=== PATIENT | male | born 1980 | race Caucasian/White ===

== ENCOUNTER 2018-05-13 16:18 | Emergency (ER) | payer OTHER ==
[2018-05-13] MEDS ORDERED: Nicotine Inhaler* 10 MG AMP INH PRN (16:56)
[2018-05-13] MEDS ORDERED: Benztropine TAB* 2 MG PO ONE (16:57)
[2018-05-13 17:48] LABS: ABS Basophils 0 10^3/ul (0-0.2); ABS Eosinophils 0.1 10^3/ul (0-0.6); ABS Lymphocytes 1.4 10^3/ul (1.0-4.8); ABS Monocytes 0.5 10^3/ul (0-0.8); ABS Neutrophils 3.4 10^3/ul (1.5-7.7); ABS Nucleated RBC 0 10^3/ul; Eosinophil % 2.7 %; Hematocrit 34 % (42-52); Hemoglobin 11.6 g/dl (14.0-18.0); Lymphocyte % 25.9 %; Mean Corpuscular HGB Conc 34 g/dl (31-36); Mean Corpuscular Hemoglobin 29 pg (27-31); Mean Corpuscular Volume 85 fL (80-94); Mean Platelet Volume 9.2 fL (7.4-10.4); Nucleated Red Blood Cells % 0; Platelet Count 112 10^3/ul (150-450); Red Blood Count 3.98 10^6/ul (4.00-5.40); Red Cell Distribution Width 16 % (10.5-15); White Blood Count 5.5 10^3/ul (3.5-10.8)
[2018-05-13] MEDS ORDERED: Mouth Piece, Nicotine* 1 EACH CARTRIDGE INH ONE (18:00)
--- NOTE | 2018-05-13 18:00 | ED ---
Complex/Multi-Sys Presentation - HPI Summary HPI Summary: A 37 y/o male presents to the ED to be evaluated for tardive dyskinesia and hearing voices, referred by Lisa Ureña NP. Patient was sent here from [facility]. Pt has hx schizoaffective disorder. Patient was recently taken off Haldol and placed on Seroquel 50 qhs approximately 2 days ago. It was noted that the patient was on Haldol for about 5 months while he was in [facility]. Pt has hx heroin abuse, with no abuse since he was in [facility]. According to the patient, he cannot stop moving his legs. He denies any SI, HI, headache, dizziness, chest pain, and SOB. The patient noted that he does hear voices when he is off his medication, and does here them now but they do not tell him to do anything. He stated that "they were fine". During evaluation, the patient has his arms crossed and his legs are bouncing back and forth. Patient is anxious. Patient requested nicotine patch. - History Of Current Complaint Chief Complaint: EDGeneral Time Seen by Provider: 05/13/18 16:55 Hx Obtained From: Patient, Other: - Lisa Ureña NP at [facility] Onset/Duration: Gradual Onset, Lasting Days, Still Present Timing: Constant Severity Currently: Moderate Severity Initially: Moderate Location: Negative - pain, +akathisia Aggravating Factor(s): NOTHING Alleviating Factor(s): NOTHING Associated Signs And Symptoms: Positive: Other - NEGATIVE: SI AND HI. Negative : Dizziness, Headache, SOB, Chest Pain Related History: Other - pt at [facility]; hx heroin abuse, none now - Allergies/Home Medications Allergies/Adverse Reactions: Allergies Allergy/AdvReac Type Severity Reaction Status Date / Time vancomycin Allergy Stomach Verified 05/13/18 16:43 Cramps PMH/Surg Hx/FS Hx/Imm Hx Previously Healthy: No - former heroin abuser, currently resident of [facility] 2017 Endocrine/Hematology History: Denies: Hx Diabetes Cardiovascular History: Denies: Hx Hypertension GI History: Reports: Other GI Disorders - hx hep C and elevated LFTS - Surgical History Surgery Procedure, Year, and Place: PER PATIENT, NO PRIOR SURGERIES NOTED Infectious Disease History: Yes Infectious Disease History: Reports: Hx Hepatitis - C Denies: Traveled Outside the [place] in Last 30 Days - Family History Known Family History: Positive: Other - MENTAL HEALTH ISSUES FHX - Social History Occupation: Unemployed Lives: Custodial - [facility] Alcohol Use: None Hx Substance Use: Yes - former Substance Use Type: Reports: Heroin Smoking Status (MU): Former Smoker Have You Smoked in the Last Year: Yes - smoked two cigarettes today on the way to ED 05/13/18 Review of Systems Negative: Fever Negative: Chest Pain Negative: Shortness Of Breath Gastrointestinal: Negative Musculoskeletal: Negative Skin: Negative Neurological: Other - NEGATIVE: DIZZINESS, arms and legs in constant motion Negative: Headache Psychological: Other - NEGATIVE: HI AND SI, hearing voices All Other Systems Reviewed And Are Negative: Yes Physical Exam - Summary Physical Exam Summary: Appearance: Well-appearing, no pain distress, well-nourished, calm, cooperative Skin: Warm, color reflects adequate perfusion, dry Head: Normal Head/Face inspection, atraumatic Eyes: Conjunctiva clear ENT: Normal inspection, no lip smacking or chewing motions Neck: Supple, no nodes, no JVD Respiratory: Lungs clear, normal breath sounds, no respiratory distress Cardio: RRR, No murmur, pulses normal, brisk capillary refill Abdomen: Soft, nontender Bowel sounds: Present Musculoskeletal: Strength Intact/ROM intact, no calf tenderness, no edema. Psychological: Normal Neuro: Alert, muscle tone normal, no focal deficit, active movements of all extremities. Triage Information Reviewed: Yes Vital Signs On Initial Exam: Initial Vitals Temp Pulse Resp BP Pulse Ox 97.7 F 92 20 132/79 98 05/13/18 16:37 05/13/18 16:37 05/13/18 16:37 05/13/18 16:37 05/13/18 16:37 Vital Signs Reviewed: Yes Diagnostics - Vital Signs Vital Signs Temp Pulse Resp BP Pulse Ox 05/13/18 16:37 97.7 F 92 20 132/79 98 - Laboratory Lab Results: Lab Results 05/13/18 Range/Units 17:30 WBC 5.5 (3.5-10.8) 10^3/ul RBC 3.98 L (4.00-5.40) 10^6/ul Hgb 11.6 L (14.0-18.0) g/dl Hct 34 L (42-52) % MCV 85 (80-94) fL MCH 29 (27-31) pg MCHC 34 (31-36) g/dl RDW 16 H (10.5-15) % Plt Count 112 L (150-450) 10^3/ul MPV 9.2 (7.4-10.4) fL Neut % (Auto) 61.3 % Lymph % (Auto) 25.9 % [place] % (Auto) 9.3 % Eos % (Auto) 2.7 % Baso % (Auto) 0.8 % Absolute Neuts (auto) 3.4 (1.5-7.7) 10^3/ul Absolute Lymphs (auto) 1.4 (1.0-4.8) 10^3/ul Absolute Monos (auto) 0.5 (0-0.8) 10^3/ul Absolute Eos (auto) 0.1 (0-0.6) 10^3/ul Absolute Basos (auto) 0 (0-0.2) 10^3/ul Absolute Nucleated RBC 0 10^3/ul Nucleated RBC % 0 Result Diagrams: 05/13/18 17:30 05/13/18 17:30 Lab Statement: Any lab studies that have been ordered have been reviewed, and results considered in the medical decision making process. Re-Evaluation - Re-Evaluation First Eval Re-Evaluation Time: 20:54 Change: Improved Comment: PATIENT AGREES TO MHE. PATIENT FEELING IMPROVED AFTER COGENTIN. STILL HAS AKATHISIA. Complex Multi-Symp Course/Dx Course Of Treatment: A 37 y/o male presents to the ED to be evaluated for tardive dyskinesia and hearing voices, referred by Lisa Ureña NP. Patient was sent here from [facility]. Pt has hx schizoaffective disorder. Patient was recently taken off Haldol and placed on Seroquel 50 qhs approximately 2 days ago. It was noted that the patient was on Haldol for about 5 months while he was in [facility]. Pt has hx heroin abuse, with no abuse since he was in [facility]. According to the patient, he cannot stop moving his legs. He denies any SI, HI, headache, dizziness, chest pain, and SOB. The patient noted that he does hear voices when he is off his medication, and does here them now but they do not tell him to do anything. He stated that "they were fine". During evaluation, the patient has his arms crossed and his legs are bouncing back and forth. Patient is anxious. Patient requested nicotine patch. Pt medications reviewed this visit. Physical examination findings significant for active movements of all extremities. Hematology, Chemistry, urinalysis, and toxicology screens were done. No significant laboratory abnormalities were found except mildly elevated BUN 27 (with normal creatinine), mildly elevated LFT (which pt says is chronic and due to his hepatitis C), mild anemia (HCT 34). In the ED course, the patient received Nicotine, Cogentin, and Benadryl Po. During re-evaluation, the patient revealed he is feeling improved after Cogentin. Patient still has akathisia. Patient agrees to MHE. Patient will be signed out to Dr. Tawanda Davis via Dr. Di Jimenez, pending MHE and disposition, on 05/13/18 at 2200. Patient will be signed out with a diagnosis of tardive dyskinesia , schizoaffective disorder, and auditory hallucinations. - Diagnoses Provider Diagnoses: Tardive dyskinesia, Schizoaffective disorder, Auditory hallucinations Discharge - Sign-Out/Discharge Documenting (check all that apply): Sign-Out Patient - SEVERINO Signing out patient TO: Tawanda Davis - pending MHE 05/13/18 22:00. Receiving patient FROM: Di Jimenez - Discharge Plan Condition: Stable Referrals: No Primary Care Phys,NOPCP [Primary Care Provider] - - Billing Disposition and Condition Condition: STABLE - Attestation Statements Document Initiated by Susannah: Yes Documenting Scribe: Jaydon Baca Provider For Whom Scribe is Documenting (Include Credential): Di Jimenez MD Scribe Attestation: Jaydon Beltran scribed for Di Jimenez MD on 05/13/18 at 2216. Scribe Documentation Reviewed: Yes Provider Attestation: The documentation as recorded by the Jaydon tim accurately reflects the service I personally performed and the decisions made by , Di Jimenez MD Status of Scribe Document: Viewed
[2018-05-13 18:02] LABS: Urine Appearance Clear; Urine Bilirubin Negative (Negative); Urine Blood Negative (Negative); Urine Color Yellow; Urine Glucose Negative (Negative); Urine Ketones Negative (Negative); Urine Nitrite Negative (Negative); Urine Protein Negative (Negative); Urine Specific Gravity 1.024 (1.010-1.030); Urine Urobilinogen Negative (Negative)
[2018-05-13 18:06] LABS: ALT 134 U/L (7-52); AST 82 U/L (13-39); Albumin/Globulin Ratio 1.4 (1-3); Alkaline Phosphatase 45 U/L (34-104); Anion Gap 4 mmol/L (2-11); BUN/Creatinine Ratio 29.7 (8-20); Blood Urea Nitrogen 27 mg/dL (6-24); CO2 Carbon Dioxide 30 mmol/L (22-32); Calcium 9.5 mg/dL (8.6-10.3); Chloride 106 mmol/L (101-111); EGFR Non-African American 92.8 (>60); Globulin 2.9 g/dL (2-4); Glucose 177 mg/dL (70-100); Potassium 4.5 mmol/L (3.5-5.0); Sodium 140 mmol/L (135-145); Total Protein 6.9 g/dL (6.4-8.9)
[2018-05-13 18:23] LABS: Acetaminophen < 15 mcg/mL; Alcohol < 10 mg/dL (<10); Salicylate < 2.50 mg/dL (<30)
[2018-05-13 18:38] LABS: Barbiturates Urine Screen None Detected (None Detect); Benzodiazepine Urine Screen None Detected (None Detect); Urine Cannabinoids Screen None Detected (None Detect)
[2018-05-13 18:58] LABS: TSH (Thyroid Stimulating Horm) 1.66 mcIU/mL (0.34-5.60)
[2018-05-13] MEDS ORDERED: diPHENhydraMINE PO* 50 MG PO ONE (21:06)
--- NOTE | 2018-05-13 22:59 | ED ---
Progress - Progress Note Progress Note: Patient was signed out by Dr. Jimenez to Dr. Davis, awaiting mental health evaluation - Consult/PCP Time Called: 21:09 Re-Evaluation - Re-Evaluation First Eval Re-Evaluation Time: 20:54 Change: Improved Comment: PATIENT AGREES TO MHE. PATIENT FEELING IMPROVED AFTER COGENTIN. STILL HAS AKATHISIA. Course/Dx - Course Course Of Treatment: The patient was signed out by Dr. Jimenez to Dr. Davis, awaiting mental health evaluation. The patient will be discharged - Diagnoses Provider Diagnoses: Tardive dyskinesia, Schizoaffective disorder, Auditory hallucinations Discharge - Sign-Out/Discharge Documenting (check all that apply): Patient Departure - discharge, Receiving Sign-Out Receiving patient FROM: Di Jimenez - Discharge Plan Condition: Stable Disposition: HOME Referrals: [facility] [Other] (Please return to [facility], for inpatient substance abuse treatment. It is our psychiatrist's recommendation that you talk to your provider and consider taking 1mg of Cogentin, twice a day , orally.) No Primary Care Phys,NOPCP [Primary Care Provider] - - Billing Disposition and Condition Condition: STABLE Disposition: Home - Attestation Statements Document Initiated by Scribe: Yes Documenting Scribe: Adam Anton Provider For Whom Susannah is Documenting (Include Credential): Tawanda Davis MD Scribe Attestation: IAdam, scribed for Tawanda Davis MD on 05/14/18 at 1844. Scribe Documentation Reviewed: Yes Provider Attestation: The documentation as recorded by the Adam tim accurately reflects the service I personally performed and the decisions made by me, Tawanda Davis MD Status of Scribe Document: Viewed
[2018-05-14 04:14] VITALS: BP 121/74
== END 2018-05-14 04:22 | disposition home or self-care (01) ==
LOC: ED 16:18
DX: G24.01 Drug induced subacute dyskinesia (principal); F20.9 Schizophrenia, unspecified; Z88.1 Allergy status to other antibiotic agents; Z72.0 Tobacco use
CPT/HCPCS: 36415; 80053; 80307; 80320; 80329; 81003; 84443; 85025; 99284; A9270-GY; G0480